=== PATIENT | female | born 1995 | race Two or more races ===

== ENCOUNTER 2025-01-16 01:16 | Emergency (ER) | payer MEDICAID, SELFPAY ==
[2025-01-16 01:17] VITALS: PULSE 90; RESP 12; O2SAT 99; BMI 24.0
[2025-01-16 01:26] VITALS: BP 123/83; PULSE 92; RESP 14; TEMP 37; O2SAT 99
[2025-01-16 02:09] LABS: Collection Type, Urine Clean Catch
[2025-01-16 02:10] LABS: Basophils # (Auto) 0.1 Thou/mm3 (0.0-0.2); Basophils % (Auto) 1 % (0-2.5); Eosinophils # (Auto) 0.2 Thou/mm3 (0.0-0.5); Eosinophils % (Auto) 2 % (0-10); Hematocrit 36.7 % (36.0-46.0); Hemoglobin 12.0 g/dL (12.0-16.0); Immature Granulocytes Auto 0.03 Thou/mm3 (0.00-0.00); Lymphocytes # (Auto) 2.8 Thou/mm3 (1.0-4.8); Lymphocytes % (Auto) 25 % (10-50); Mean Corpuscular HGB Conc 32.7 g/dl (31.0-37.0); Mean Corpuscular Hemoglobin 28.3 pg (25.0-35.0); Mean Corpuscular Volume 87 fL (80-100); Monocytes # (Auto) 0.7 Thou/mm3 (0.0-0.8); Monocytes % (Auto) 6 % (0-12); Neutrophils # (Auto) 7.4 Thou/mm3 (1.8-7.7); Neutrophils % (Auto) 67 % (37-80); Nucleated Red Blood Cell # 0.00 Thou/mm3 (0.00-0.00); Nucleated Red Blood Cell % 0 /100 WBC (0); Platelet Count 204 Thou/mm3 (140-440); RDW Standard Deviation 46.2 fL (36.4-46.3); Red Blood Count 4.24 Miln/mm3 (4.00-5.20); White Blood Count 11.1 Thou/mm3 (3.6-11.0)
[2025-01-16 02:23] LABS: Bilirubin,Urine Negative (Negative); Blood,Urine Negative (Negative); Clarity,Urine Clear (Clear/Hazy); Color,Urine Lt-Yellow (Lt Yel-Yel); Culture Indicated,Urine Not Indicated; Glucose, Urine Negative (Negative); Ketones,Urine Negative (Negative); Leukocyte Esterase,Urine Positive (Negative); Nitrite,Urine Negative (Negative); PH,Urine 5.5 (5.0-7.0); Protein,Urine Negative (Neg - Trace); RBC,Urine 2 /hpf (0-3); Specific Gravity,Urine 1.013 (1.001-1.035); Squamous Epithelial Cell,Urine 3 /hpf (0-5); Urobilinogen,Urine Negative mg/dL (0.0-1.0); WBC,Urine 2 /hpf (0-5)
[2025-01-16 02:25] LABS: Amphetamine/Methamp Scrn,U Negative (Negative); Barbiturate Screen,Urine Negative (Negative); Benzodiazepines Screen,Urine Negative (Negative); Benzoylecgonine Screen, Ur Negative (Negative); Fentanyl Screen,Urine Negative (Negative); Opiate Screen,Urine Negative (Negative); THC Screen,Urine Negative (Negative)
[2025-01-16 02:29] LABS: HCG,Qualitative Serum Negative
[2025-01-16 02:44] LABS: Acetaminophen < 2.0 mcg/mL (10.0-20.0); Alanine Aminotransferase 8 U/L (10-49); Albumin, Serum 4.8 gm/dL (3.5-5.0); Albumin/Globulin Ratio 2.2 (1.2-2.2); Alcohol, Blood Medical < 3.0 mg/dL (0-10.0); Alkaline Phosphatase 50 U/L (46-116); Anion Gap 8 (7-16); Aspartate Amino Transferase 13 U/L (0-34); BUN/Creatinine Ratio 13 Ratio (12-20); Bilirubin,Total 0.3 mg/dL (0.3-1.2); Blood Urea Nitrogen 9 mg/dL (9-23); Calcium 8.9 mg/dL (8.3-10.6); Calcium (Corrected) 8.9 mg/dL (8.5-10.1); Carbon Dioxide 27.1 mMol/L (20.0-31.0); Chloride 105 mMol/L (98-107); Creatinine (Component) 0.7 mg/dL (0.6-1.3); Estimated Creatinine Clearance 102.4 mL/min (>60); Globulin 2.2 gm/dL (2.3-3.5); Glucose 90 mg/dL (74-106); Osmolality,Calculated 278 (275-295); Potassium 3.8 mMol/L (3.4-5.1); Salicylate < 3.0 mg/dL; Sodium 140 mMol/L (136-145); Total Protein 7.0 gm/dL (5.7-8.2); eGFR > 60 See Note
[2025-01-16 06:20] VITALS: BP 106/75; PULSE 88; RESP 15; TEMP 36.8; O2SAT 99
[2025-01-16 07:36] VITALS: BP 104/69; PULSE 86; RESP 16; TEMP 36.7; O2SAT 99
--- NOTE | 2025-01-16 07:36 | EDNOTE_ITS ---
ED Psych RME/HPI General Chief Complaint: Psychiatric Symptoms Stated Complaint: PSYCH Time Seen by Provider: 01/16/25 04:35 Arrival date/time: 01/16/25 01:16 RME / HPI RME / HPI Narrative: DR. MCLEOD MAIN ED EVALUATION: 29-year-old female with a past medical history of bipolar disorder, on lithium, and schizophrenia presents to the Emergency Department for evaluation of auditory hallucinations ongoing for the past month. The patient reports hearing voices, specifically identifying one as [place] , which tells her to hurt people and not take her medications. She admits she has not been consistently taking her lithium as instructed. She denies suicidal ideation. No physical complaints. Related Data Home Medications ?Medication ?Instructions ?Recorded ?Confirmed quetiapine 100 mg tablet 200 mg PO HS 09/14/19 Allergies Allergy/AdvReac Type Severity Reaction Status Date / Time No Known Allergies Allergy Unknown Verified 01/16/25 01:17 Review of Systems Review of Systems Systems Reviewed: All systems reviewed, normal except as documented Past Medical History Past Medical History PSYCHO/SOCIAL: Positive Schizophrenia and Bipolar Disorder Social History SMOKING STATUS: Current some day smoker ED Exam Narrative Physical exam: GENERAL APPEARANCE:? alert and oriented x 4, well-developed, well-nourished, no acute distress HEENT: normocephalic, atraumatic NECK: supple LUNGS: no respiratory distress, normal effort HEART: good peripheral perfusion ABDOMEN: non distended EXTREMITIES:? atraumatic NEUROLOGIC: awake; alert and oriented x4; cranial nerves II-XII grossly intact PSYCHIATRIC:? Cooperative; admits to auditory hallucinations; no suicidal ideation SKIN: warm, dry, normal color; no rashes Course Course Course Narrative: The patient is medically cleared. Quality Measures none Orders Category Date Time Status One-to-one observation NOW Care 01/16/25 01:30 Active Suicide precautions NOW Care 01/16/25 04:39 Active Diet Regular Diet 01/16/25 Breakfast Active Acetaminophen Stat Lab 01/16/25 02:02 Completed Alcohol, Blood Medical Stat Lab 01/16/25 02:02 Completed CBC Stat Lab 01/16/25 02:02 Completed CMP [Comprehensive Metabolic Panel] Stat Lab 01/16/25 02:02 Completed Drug Screen,Urine Stat Lab 01/16/25 02:00 Completed HCG,Qualitative Serum Stat Lab 01/16/25 02:02 Completed Salicylate Stat Lab 01/16/25 02:02 Completed UA, C/S IF [Urinalysis, C/S if Indicated] Stat Lab 01/16/25 02:00 Completed LORazepam [Ativan] Med 01/16/25 06:32 Discontinued 2 mg PO X1 ONE risperiDONE [RisperDAL] Med 01/16/25 05:36 Discontinued 1 mg PO X1 ONE Vital Signs Vital signs: Vital Signs Temperature 98.6 F 01/16/25 01:26 Pulse Rate 92 01/16/25 01:26 Respiratory Rate 14 01/16/25 01:26 Blood Pressure 123/83 01/16/25 01:26 Pulse Oximetry (%) 99 01/16/25 01:26 Oxygen Delivery Method Room Air 01/16/25 01:26 Psych MDM Narrative MDM Narrative:: Angi Roque am scribing for and in the presence of Dr. Mcleod. Patient data External records reviewed:: [facility] previous records and EMS form Clinical information provided by:: patient and EMS Social determinants that could affect healthcare access:: mental health Patient has the following chronic illnesses:: Bipolar disorder, on lithium, and schizophrenia. How is presenting disease/condition affected by chronic disease/condition?: caused by Evaluation data The following diagnostics were reviewed and interpreted by me:: lab results Lab and/or radiology exams considered but not ordered:: none Interpretation Summary: The patient is medically cleared. Medications / Prescriptions Medications or Prescriptions considered but not ordered:: none Medication administrations:: Medication Administration History Discontinued Medications Lorazepam (Lorazepam 0.5 Mg Tablet) 2 mg PO X1 ONE Stop: 01/16/25 06:33 Last Admin: 01/16/25 06:36 Dose: 2 mg Documented By: DT Risperidone (Risperidone 1 Mg Tablet) 1 mg PO X1 ONE Stop: 01/16/25 05:37 Last Admin: 01/16/25 05:57 Dose: 1 mg Documented By: DT see above Consultations Consultation(s) initiated? (list below): Yes Consultation #1 (Physician, Specialty, Details): Per vp digital marketing social media and crm, patient has been accepted to [facility]. Time: 09:43 Diagnosis Psych Differential Diagnosis: other (Schizoaffective disorder exacerbation, medication noncompliance-related psychosis, and bipolar disorder with psychotic features.) Most likely diagnosis given after review of the tests above:: Schizophrenia Bipolar disorder Auditory hallucinations Admission Indicated Admission indicated?: not indicated Admission Request Was there a request for admission?: No Disposition Plan Disposition Plan: Transfer ([facility] for psychiatric placement.) Discharge Plan Plan Patient Disposition: [facility] Prescriptions/Referrals Prescriptions/Med Rec: No Action quetiapine 100 mg tablet 200 mg PO HS Patient Comments: TAKE 2 TABLETS BY MOUTH EVERY DAY IN THE EVENING Referrals: No Primary/Family,Physician [Primary Care Provider] - In 1 week Problem List Clinical Impression: Schizophrenia, Bipolar disorder, Auditory hallucinations Patient/Caregiver Discharge Instructions Print Language: Kinyarwanda Stand Alone Forms: Mayda Award Info., Patient Portal Info Letter
--- NOTE | 2025-01-16 08:30 | PC.CC ---
Patient is a 29 year-old female. Patient was BIBA for mental health evaluation. Marline made [id number] contact with patient to complete assessment. MAKEUP SALES CONSULTANT introduced self, role, and reason for assessment. MAKEUP SALES CONSULTANT disclosed limits of confidentiality as well. Patient appeared alert and oriented to self, place, and situation. Patient made appropriate eye contact with this justowriter operator. Patient appeared euthymic. Patient?s attitude was pleasant and cooperative. No signs of delusions, paranoia or hallucinations during assessment. Patient reports she has been hearing ?woody the devil speaks to her.? She reports she has not been taking her medication as [place] has been preventing her from taking her medication. She disclosed that Fontana?s voices were so strong that she had her sister call the ambulance to bring her to the hospital as she felt she needed help. Patient reports she had not slept in 3 days and had not taken her medication in approximately a week. Patient expressed that she had been doing well since the last time she was placed on a hold in 2023. 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 Patient reports she is connected to outpatient mental health services with [facility]. Patient reports she has a mental health diagnosis of Bipolar and Schizophrenia. At the time of encounter the patient denied suicidal and homicidal ideations and visual hallucinations; however, she reports ?Fontana? continues to talk to her. Patient was High-Risk on the [place] Screening. Patient provided verbal consent to make telephone contact with her mother Mallika Melgoza for collateral information. Komal FAY made telephone contact with Mallika Melgoza . MAKEUP SALES CONSULTANT introduced self, role, and reason for contact. Patient?s mother confirmed that the patient lives with her at [address] [place] [id number]. Patient?s mother reports that yesterday patient was acting bizarre and stating she needed help as she was hearing a voice. She reports she has not slept in several days and 3 days ago she broke a TV and took it outside as this is what the voices were telling her to do. Mother confirmed the patient has not been taking her medication for the last week consistently. ?? The patient?s mother reported she is not willing to safety plan with the patient as she needs help to stabilize her mental health. After clinical discussion with Siobhan FAY: MAKEUP SALES CONSULTANT will be placing patient on a 5150-hold, due to being unable to safety plan with patient and family. Patient was provided with advisement of 5150-hold and patient?s rights handbook. Komal FAY provided update to medical team of 5150-hold and LPS transfer.
[2025-01-16 10:00] VITALS: BP 102/69; PULSE 91; RESP 16; TEMP 36.7; O2SAT 100
[2025-01-16 10:53] VITALS: BP 105/86; PULSE 90; RESP 16; TEMP 36.7; O2SAT 99
--- NOTE | 2025-01-16 10:59 | PC.NURSE ---
report called to sylvia from [facility] via telephone
== END 2025-01-16 11:00 ==
PROVIDERS: Emergency Medicine; Emergency Provider Emergency Medicine
DX: F20.9 Schizophrenia, unspecified (principal); F31.9 Bipolar disorder, unspecified
CPT/HCPCS: 36415; 80053; 80307; 80320; 80329; 81001; 84703; 85025; 96127; 99284; A9270; G0480